=== PATIENT | male | born 1960 | race Two or more races ===

== ENCOUNTER 2023-06-13 07:44 | Day surgery (SDC) | payer OTHER ==
[2023-06-13] MEDS ORDERED: MIDAZOLAM HCL 2 MG/2 ML VIAL IV ONE (10:00)
[2023-06-13] MEDS ORDERED: fentaNYL CITRATE 50 MCG/ML AMPUL IV ONE (10:00)
[2023-06-13] MEDS ORDERED: DIPHENHYDRAMINE HCL 50 MG/ML VIAL 1ML IV ONE (10:00)
[2023-06-14] MEDS ORDERED: MIDAZOLAM HCL 2 MG/2 ML VIAL IV ONE (09:25)
== END 2023-06-13 11:20 | disposition home or self-care (01) ==
LOC: AMB-ENDOS 07:44
PROVIDERS: ATTEND Surgery
DX: K63.5 Polyp of colon (principal); K57.30 Diverticulosis of large intestine without perforation or abscess without bleeding; D12.5 Benign neoplasm of sigmoid colon